=== PATIENT | male | born 1955 | race Caucasian/White ===

== ENCOUNTER 2022-09-11 10:57 | Inpatient (IN) | payer MEDICAID ==
[~2022-09-11] VITALS: Ht 165.1 cm; Wt 74.8 kg
[2022-09-11] MEDS ORDERED: VANCOMYCIN 1G PREMIX 200 ML IV SCH (12:45)
[2022-09-11] MEDS ORDERED: SODIUM CHLORIDE 0.9% 1,000 ML IV ONE (12:45)
[2022-09-11] MEDS ORDERED: PIPERACILLIN/TAZOBACTAM 3.375GM/50ML PREMIX IV ONE (12:45)
[2022-09-11] MEDS ORDERED: CLINDAMYCIN 600 MG in DEXTROSE 5% WATER 50 ML IV ONE (12:45)
[2022-09-11] MEDS ORDERED: CLINDAMYCIN 600MG PREMIX 50 ML IV SCH (13:45)
[2022-09-11 15:42] LABS: CHLORIDE 97 mEq/L (98-107)
[2022-09-11 15:45] LABS: HEMATOCRIT. 42.6 % (42.0-52.0); HEMOGLOBIN. 14.3 g/dL (14.0-18.0); MEAN CORPUSCULAR HEMOGLOBIN 29.7 pg (28.0-32.0); MEAN CORPUSCULAR VOLUME 88.8 fL (80.0-94.0); MEAN PLATELET VOLUME 8.7 fl (7.4-10.4); PLATELET 254 x1000/uL (130-400); RED CELL DISTRIBUTION WIDTH 13.8 % (11.6-14.6)
[2022-09-11 15:56] LABS: INR 1.3; PARTIAL THROMBOPLASTIN TIME 33.2 sec (23.4-31.0); PROTHROMBIN TIME 13.3 sec (9.6-11.0)
[2022-09-11] MEDS ORDERED: ACETAMINOPHEN 325MG TABLET PO PRN ×2 (16:00)
[2022-09-11] MEDS ORDERED: MAGNESIUM/ALUMINUM HYDROXIDE/SIMETHICONE 30ML UDC PO PRN (16:00)
[2022-09-11] MEDS ORDERED: HYDROCODONE/ACETAMINOPHEN 5/325MG TABLET PO PRN (16:00)
[2022-09-11] MEDS ORDERED: IPRATROPIUM/ALBUTEROL 0.5-3(2.5)MG/3ML NEB HHN PRN (16:00)
[2022-09-11] MEDS ORDERED: GUAIFENESIN 200MG/10ML SUGAR FREE UDC PO PRN (16:00)
[2022-09-11] MEDS ORDERED: CLONIDINE 0.1MG TABLET PO PRN (16:00)
[2022-09-11] MEDS ORDERED: ONDANSETRON HCL 4MG/2ML INJ IV PRN (16:00)
[2022-09-11] MEDS ORDERED: POTASSIUM CHLORIDE 20MEQ TABLET SR PO NR (16:30)
[2022-09-11 17:45] LABS: PLATELET ESTIMATE NORMAL
[2022-09-11] MEDS: SODIUM CHLORIDE 0.9% 1,000 ML IV SCH (18:04)
[2022-09-11] MEDS: ENOXAPARIN 30MG/0.3ML SYR SUBCUT SCH (18:05)
[2022-09-11] MEDS: PIPERACILLIN/TAZOBACTAM 3.375 G in DEXTROSE 5% WATER 50 ML IV SCH (22:16)
[2022-09-11 23:44] VITALS: BP 100/72
[2022-09-12] MEDS: SODIUM CHLORIDE 0.9% 1,000 ML IV SCH ×3 (02:43→20:43)
[2022-09-12] MEDS ORDERED: VANCOMYCIN 750MG PREMIX 150 ML IV SCH (06:00)
[2022-09-12 06:54] LABS: HEMATOCRIT. 42.4 % (42.0-52.0); HEMOGLOBIN. 14.3 g/dL (14.0-18.0); MEAN PLATELET VOLUME 9.1 fl (7.4-10.4); PLATELET 242 x1000/uL (130-400); RED BLOOD CELL COUNT 4.77 mill/uL (4.7-6.1); RED CELL DISTRIBUTION WIDTH 14.2 % (11.6-14.6)
[2022-09-12 07:47] LABS: CHLORIDE 102 mEq/L (98-107)
[2022-09-12 07:56] LABS: HDL CHOLESTEROL 25 mg/dL (40-59); LDL CHOLESTEROL 50 mg/dL (5-100)
[2022-09-12 08:00] VITALS: BP 111/75
[2022-09-12] MEDS ORDERED: PIPERACILLIN/TAZOBACTAM 3.375GM/50ML PREMIX IV SCH (09:00)
[2022-09-12] MEDS ORDERED: VANCOMYCIN 1G PREMIX 200 ML IV SCH (09:00)
[2022-09-12] MEDS: PANTOPRAZOLE SODIUM 40 MG/VIAL IV SCH (10:20)
[2022-09-12] MEDS ORDERED: SILVER SULFADIAZINE 1% CREAM 25GM TOP NR (11:00)
[2022-09-12 11:23] LABS: PLATELET ESTIMATE NORMAL
[2022-09-12 12:00] VITALS: BP 117/74
[2022-09-12 16:00] VITALS: BP 114/80
[2022-09-12] MEDS: PIPERACILLIN/TAZOBACTAM 3.375 G in DEXTROSE 5% WATER 50 ML IV SCH ×2 (17:43→21:53)
[2022-09-12] MEDS: ENOXAPARIN 30MG/0.3ML SYR SUBCUT SCH (17:45)
[2022-09-12 20:00] VITALS: BP 107/67
[2022-09-12] MEDS ORDERED: IPRATROPIUM BROMIDE (0.02%) 0.5MG/2.5ML NEB HHN PRN (21:00)
[2022-09-12] MEDS ORDERED: ALBUTEROL (0.083%) 2.5MG/3ML NEB HHN PRN (21:00)
[2022-09-13] VITALS: BP 107/69
[2022-09-13] MEDS: SODIUM CHLORIDE 0.9% 1,000 ML IV SCH ×2 (00:44→16:44)
[2022-09-13 04:00] VITALS: BP 131/80
[2022-09-13 06:47] LABS: CHLORIDE 101 mEq/L (98-107)
[2022-09-13 06:58] LABS: CREATINE KINASE 32 IU/L (39-308)
[2022-09-13 07:05] LABS: HEMATOCRIT. 40.1 % (42.0-52.0); HEMOGLOBIN. 13.4 g/dL (14.0-18.0); MEAN CORPUSCULAR VOLUME 89.4 fL (80.0-94.0); MEAN PLATELET VOLUME 9.3 fl (7.4-10.4); PLATELET 223 x1000/uL (130-400); RED BLOOD CELL COUNT 4.48 mill/uL (4.7-6.1); RED CELL DISTRIBUTION WIDTH 14.1 % (11.6-14.6)
[2022-09-13] MEDS ORDERED: POTASSIUM CHLORIDE 20MEQ TABLET SR PO NR (07:30)
[2022-09-13 08:00] VITALS: BP 120/77
[2022-09-13] MEDS: PANTOPRAZOLE SODIUM 40 MG/VIAL IV SCH (08:55)
[2022-09-13] MEDS: PIPERACILLIN/TAZOBACTAM 3.375 G in DEXTROSE 5% WATER 50 ML IV SCH ×2 (08:55→20:43)
[2022-09-13 09:31] LABS: CLARITY URINE CLOUDY (CLEAR); COLOR URINE YELLOW (YELLOW); KETONES URINE NEGATIVE (NEGATIVE); LEUKOCYTE ESTERASE URINE NEGATIVE (NEGATIVE); NITRITE URINE NEGATIVE (NEGATIVE); OCCULT BLOOD URINE TRACE (NEGATIVE); PROTEIN URINE 1+ (NEGATIVE); SPECIFIC GRAVITY URINE 1.022 (1.005-1.030)
[2022-09-13 12:00] VITALS: BP 133/79
[2022-09-13 16:00] VITALS: BP 149/90
[2022-09-13] MEDS ORDERED: NALOXONE HCL 0.4MG/ML VIAL IV PRN (16:15)
[2022-09-13] MEDS ORDERED: SILVER SULFADIAZINE 1% CREAM 50GM TOP SCH (17:00)
[2022-09-13] MEDS: ENOXAPARIN 30MG/0.3ML SYR SUBCUT SCH (17:50)
[2022-09-13 20:00] VITALS: BP 131/78
[2022-09-13 20:49] LABS: PLATELET ESTIMATE NORMAL
[2022-09-13] MEDS ORDERED: TETANUS AND DIPHTHERIA TOX/PF 0.5ML SYR (ADULT) IM ONE (21:00)
[2022-09-14] VITALS: BP 137/89
[2022-09-14 04:00] VITALS: BP 151/87
[2022-09-14 06:11] LABS: HEMATOCRIT. 38.8 % (42.0-52.0); HEMOGLOBIN. 13.3 g/dL (14.0-18.0); MEAN CORPUSCULAR HEMOGLOBIN 30.3 pg (28.0-32.0); MEAN CORPUSCULAR VOLUME 88.3 fL (80.0-94.0); MEAN PLATELET VOLUME 9.1 fl (7.4-10.4); PLATELET 226 x1000/uL (130-400); RED BLOOD CELL COUNT 4.39 mill/uL (4.7-6.1); RED CELL DISTRIBUTION WIDTH 14.2 % (11.6-14.6)
[2022-09-14 06:36] LABS: CHLORIDE 103 mEq/L (98-107)
[2022-09-14 06:47] LABS: PHOSPHORUS 2.6 mg/dL (2.5-4.9)
[2022-09-14 08:00] VITALS: BP 146/89
[2022-09-14] MEDS ORDERED: POTASSIUM CHLORIDE 20MEQ TABLET SR PO NR (08:30)
[2022-09-14] MEDS: PANTOPRAZOLE SODIUM 40 MG/VIAL IV SCH (10:02)
[2022-09-14] MEDS: PIPERACILLIN/TAZOBACTAM 3.375 G in DEXTROSE 5% WATER 50 ML IV SCH (10:02)
[2022-09-14] MEDS: SODIUM CHLORIDE 0.9% 1,000 ML IV SCH (10:03)
[2022-09-14] MEDS ORDERED: LINE600T14 PO (10:17)
[2022-09-14] MEDS ORDERED: TOPUD PO (10:17)
[2022-09-14] MEDS ORDERED: SILV20CR13 TP (10:17)
[2022-09-14 11:51] VITALS: BP 164/96
[2022-09-14 12:14] VITALS: BP 146/89
[2022-09-14 13:10] LABS: *CREATININE RANDOM URINE 103.4 mg/dL (Not Estab.); MICROALBUMIN RANDOM URINE 18.4 ug/mL (Not Estab.)
[2022-09-14 14:13] LABS: PLATELET ESTIMATE NORMAL
[2022-09-14 16:00] VITALS: BP 146/85
[2022-09-14] MEDS ORDERED: ENOXAPARIN 40MG/0.4ML SYR SUBCUT SCH (18:00)
== END 2022-09-14 17:19 | disposition home or self-care (01) | DRG 720 ==
LOC: ER 10:57 → 6EST 14:55 → SUPCPDRO 16:52
PROVIDERS: ADMIT Internal Medicine; ATTEND Internal Medicine
PROC: 0H9NXZZ Drainage of Left Foot Skin, External Approach (ICD-10-PCS; principal; 2022-09-12)
DX: A41.9 Sepsis, unspecified organism (principal); E87.20 Acidosis, unspecified; N17.9 Acute kidney failure, unspecified; E43 Unspecified severe protein-calorie malnutrition; E87.1 Hypo-osmolality and hyponatremia; E87.6 Hypokalemia; L03.116 Cellulitis of left lower limb; N40.0 Benign prostatic hyperplasia without lower urinary tract symptoms; R73.03 Prediabetes; S90.822A Blister (nonthermal), left foot, initial encounter; Z79.899 Other long term (current) drug therapy; Z68.27 Body mass index [BMI] 27.0-27.9, adult; X58.XXXA Exposure to other specified factors, initial encounter; Y93.89 Activity, other specified; Y92.89 Other specified places as the place of occurrence of the external cause; Y99.8 Other external cause status
CPT/HCPCS: 36415; 71045; 73700; 76700; 76770; 80053; 80061; 80202; 81003; 82043; 82550; 82570; 82962; 83036; 83605; 83735; 83935; 84100; 84145; 84156; 84300; 84550; 85025; 85379; 85651; 86038; 86256; 86850; 86900; 87070; 87077; 87186; 90714; 93970; 99285; C9113; J1650; J2543; J3370; J3490; J7030; J7060